=== PATIENT | female | born 1955 | race Caucasian/White ===

== ENCOUNTER → 2016-07-09 10:42 | Outpatient (CLI) | payer MEDICARE, BC ==
[2016-03-09 08:40] VITALS: BMI 39.2
[~2016-07-09 10:42] MED LIST: BETAPACE 120 M120 MG PO; BETAPACE 80 MG80 MG PO; BUMEX 1 MG TAB1 MG PO; BUMEX2 MG PO; BUTRANS1 EAC4 TRANSDERM; DIABETA5 MG PO; DOXYCYCLINE HY100 M2 PO; EFFEXOR XR75 MG PO; GLUCOPHAGE1000 MG PO; GLUCOVANCE 2.5/1 TAB PO; GLUCOVANCE 5/501 TAB PO; IMITREX50 MG PO; KLOR-CON M2020 MEQ PO; LINZESS145 MCG PO; MORPHINE SULFAT15 M4 PO; NEURONTIN 300300 MG PO; PAXIL20 MG PO; PERCOCET 10/3251 TA1 PO; PERCOCET 5-3251 TAB PO; PHENERGAN25 M1 PO; PRAVACHOL20 MG PO; SOMA350 MG PO; TOPIRAGEN50 MG PO; TRULICITY0.75 MG/0. SC; TYLENOL W/CODEI1 TAB PO; VENTOLIN HFA18 GM INH; XANAX0.5 MG
== END | disposition home or self-care (01) ==
LOC: D.MRI 10:42
DX: M25.562 Pain in left knee (principal)

== ENCOUNTER 2016-07-26 19:49 | Observation (INO) | payer MEDICARE, BC ==
[~2016-07-26] VITALS: Ht 170.2 cm; Wt 113.4 kg
--- NOTE | ~2016-07-26 | OP ---
PATIENT NAME: JAMAR VICENTE MEDICAL RECORD: [id number] :55 LOCATION:D.M2 D.2116 ADMISSION DATE:07/26/16 SURGEON: RAMANA ARAUJO MD DATE OF OPERATION: 07/27/2016 PROCEDURES: 1. Left heart catheterization. 2. Selective coronary angiography. 3. Left ventriculogram. INDICATION: Chest pain compatible with angina. PROCEDURE IN DETAIL: After informed consent was obtained and after detailed explanation of risks, benefits as well as alternative therapies, the patient elected to proceed with angiogram and heart catheterization. The right radial area was prepped and draped in normal sterile fashion. The right radial artery was cannulated via modified Seldinger technique with placement of 6-Eritrean sheath. All catheters exchanged through this sheath. FINDINGS: Left ventriculogram was performed in the standard 30-degree SCHNEIDER view reveals good cardiac wall motion throughout all segments. Overall ejection fraction estimated at 60%. SELECTIVE CORONARY ANGIOGRAPHY: Left main, left anterior descending, left circumflex and right coronary artery are all smooth-walled vessels with no angiographic evidence of coronary artery disease. OVERALL IMPRESSION: 1. No angiographic evidence of coronary artery disease. 2. Normal left heart pressures. 3. Normal left ventricular systolic function. 4. Chest pain is noncardiac in etiology. No further cardiac workup needs to be ascertained. TRANSINT:[id number] Voice Confirmation ID: [id number] DOCUMENT ID: [id number] RAMANA ARAUJO MD CC: [id number] DICTATION DATE: 07/27/16 1621 REGIONAL OPERATIONS MANAGER: 07/27/16 2348 DIS IN 07/27/16 [id number] [place] [address]
--- NOTE | ~2016-07-26 | HEMODYNAMI ---
PATIENT:JAMAR VICENTE MEDICAL RECORD: [id number] : 55 LOCATION:[facility]an[facility]12 ADMISSION DATE: 07/26/16 Generatedon:07/27/201616:24 Patient name: JAMAR VICENTE Patient #: [id number] SSN: : 1955 Date of study: 07/27/2016 Page: Of Hemodynamic Procedure Report Patient Data Patient Demographics Procedure consent was obtained First Name: JAMAR Gender: Female Last Name: CINTHIA : 1955 Middle Initial: NINO Age: 61 year(s) Patient #: [id number] Race: Additional ID: [id number] Contact details Address: [address] [place], [place] [email or web address] State: [place] City: [facility] Zip code: [address] Past Medical History Allergies Allergen Reaction Date Comments Reported Penicillins 07/27/2016 Admission Admission Data Admission Date: 07/26/2016 Admission Time: 22:01 Room #: D.2212 Lab Results Lab Result Date: 07/27/2016 Lab Result Time: 0:00 Biochemistry Name Units Result Min Max BUN mg/dl 9 --(*---)-- 7 18 Creatinine mg/dl 0.5 -*(----)-- 0.6 1.3 CBC Name Units Result Min Max Hemoglobin g/dl 12.8 -*(----)-- 13.5 17.5 Procedure Procedure Types Cath Procedure Diagnostic Procedure LHC LHC w/Coronaries Procedure Description Procedure Date Procedure Date: 07/27/2016 Procedure Start Time: 16:09 Procedure End Time: 16:20 Procedure Staff Name Function Felice Malhotra MD Performing Physician Eulalia Echeverria RT Scrub Jessica Benoit RN Nurse Jack Castañeda RT Monitor Procedure Data Cath Procedure Fluoroscopy Diagnostic fluoroscopy Total fluoroscopy Time: 3 time: 3 min min Diagnostic fluoroscopy Total fluoroscopy dose: 582 dose: 582 mGy mGy Contrast Material Contrast Material Type Amount (ml) Isovue 300 57 Entry Location Entry Primary Successful Side Size Upsize Upsize Entry Closure Dixon ccessful Closure Location (Fr) 1 (Fr) 2 (Fr) Remarks Device Remarks Radial Right 6 Fr Mechanical artery Short Compression Diagnostic catheters Device Type Used For End Catheter Placement Terumo 5Fr [place] 110cm LV Angiography catheter Procedure Complications No complications Procedure Medications Medication Administration Route Dosage Oxygen NC 2 l/min Lidocaine 2% added to field 20 Heparin Flush Bag added to field 2 bags (1000units/500ml NS) 0.9% NaCl I.V. 100 ml/hr Versed I.V. 1 mg Fentanyl I.V. 50 mcg Radial Cocktail I.A. 1 syringe (Verapomil 2mg/Nitro 400mcg/Heparin 1500units) Versed I.V. 1 mg Fentanyl I.V. 50 mcg Fentanyl I.V. 50 mcg Hemodynamics Rest HGB: 12.8 (g/dl) Heart Rate: 59 (bpm) Snapshots Pre Cath Intra NCS Post Cath Vital Signs Time Heart Resp SPO2 etCO2 RO5zodj NIBP Rhythm Pain Sedation Rate (ipm) (%) (mmHg) (mmHg) (mmHg) Status Level (bpm) 15:55:57 60 17 99 0 0 117/55(88) NSR 0 (11) 10(A) , No pain 16:00:19 61 21 96 0 0 111/40(65) NSR 0 (11) 10(A) , No pain 16:04:35 61 19 96 0 0 111/31(88) NSR 0 (11) 10(A) , No pain 16:08:49 57 21 96 0 0 111/31(55) NSR 0 (11) 9(A) , No pain 16:13:07 60 17 97 0 0 101/30(53) NSR 0 (11) 9(A) , No pain 16:17:21 59 17 95 0 0 121/46(98) NSR 0 (11) 9(A) , No pain 16:23:09 57 17 95 0 0 121/39(88) NSR 0 (11) 10(A) , No pain Medications Time Medication Route Dose Verified Delivered Reason Notes Effectiveness by by 15:58:42 Oxygen NC 2 l/min Felice Lopez used for Marya Benoit jig boring machine set up operator 15:58:50 Lidocaine 2% added 20ml Felice Viveros for local to vial Marya Malhotra MD anesthetic field 15:59:01 Heparin Flush added 2 bags Felice Viveros used for Bag to Marya Malhotra MD procedure (1000units/500ml field NS) 15:59:10 0.9% NaCl I.V. 100 Felice Lopez Per ml/hr Marya Benoit RN physician 16:06:29 Versed I.V. 1 mg Felice Lopez for sedation Marya Benoit RN 16:06:35 Fentanyl I.V. 50 mcg Felice Lopez for sedation Marya Benoit RN 16:10:48 Radial Cocktail I.A. 1 Felice Viveros for (Verapomil syringe Marya Malhotra MD vasodilation 2mg/Nitro 400mcg/Heparin 1500units) 16:10:52 Versed I.V. 1 mg Felice Lopez for sedation Marya Benoit RN 16:10:56 Fentanyl I.V. 50 mcg Felice Lopez for sedation Marya Benoit RN 16:16:14 Fentanyl I.V. 50 mcg Felice Lopez for sedation Marya Benoit RN Procedure Log Time Note 15:29:43 Jessica Benoit RN sent for patient. Start room use. 15:29:54 ACC Patient presents with Unstable Angina CCS Anginal Class 3--Marked limitation of physical activity, angina occurs with ordinary activity.. 15:29:57 Diagnostic Cath status Urgent 15:30:01 Time tracking: Regular hours 15:30:06 Plan of Care:Hemodynamics will remain stable., Cardiac rhythm will remain stable., Comfort level will be maintained., Respiratory function will remain adequate., Patient/ family verbilizes understanding of procedure., Procedure tolerated without complication., Recovers from procedure without complications.. 15:54:42 Patient received from Med/Surg to CCL 1 Alert and oriented. Tansferred to table in Supine position. 15:54:43 Warm blankets applied, and rufino hugger turned on for patient comfort. 15:54:43 Correct patient and procedure confirmed by team. 15:54:45 Signed procedure consent form obtained from patient. 15:54:46 ECG and BP/O2 sat monitors applied to patient. 15:54:48 Vital chart was started 15:54:49 Full Disclosure recording started 15:58:19 Baseline sample Acquired. 15:58:25 Rhythm: sinus rhythm 15:58:42 Oxygen 2 l/min NC was administered by Jessica Benoit RN; used for procedure; 15:58:50 Lidocaine 2% 20ml vial added to field was administered by Felice Malhotra MD; for local anesthetic; 15:59:01 Heparin Flush Bag (1000units/500ml NS) 2 bags added to field was administered by Felice Malhotra MD; used for procedure; 15:59:10 0.9% NaCl 100 ml/hr I.V. was administered by Jessica Benoit RN; Per physician; 15:59:28 H&P Date Dictated: 07/26/2016 Within 30 days and on chart., ER History on chart.. 16:04:26 Pre-procedure instructions explained to patient. 16:04:27 Pre-op teaching completed and patient verbalized understanding. 16:04:29 Family in patients room. 16:04:31 Patient NPO since Midnight. 16:04:40 Patient allergic to Penicillins 16:04:54 Is the patient allergic to Iodine/contrast media? No. 16:05:04 Is patient on blood thinner?Yes 16:05:07 ACC The patient was administered the following blood thiners within the last 24 hours: ACCPlavix 16:05:12 Patient diabetic? No. 16:05:14 ----Pre-sedation anethsthesia assessment.---- 16:05:17 Previous problem with sedation/anesthesia? No ? 16:05:23 Snore? Yes 16:05:25 Sleep apnea? No 16:05:27 Deviated septum? No 16:05:28 Opens mouth fully? Yes 16:05:32 Sticks out tongue? Yes 16:05:37 Airway obstruction? Yes COPD 16:05:45 Dentures? Yes IN TIGHT 16:05:50 Pre procedure: right dorsailis pedis pulse 1+ Palpable, but thready & weak; easily obliterated 16:05:52 Modified Jagdish's test Ulnar > 7 seconds. 16:05:55 Patient pain scale 0/10 ?. 16:06:01 IV patent on arrival in left hand with 0.9% NaCl at 10ml/hr. 16:06:05 Right Radial & Right Groin area was prepped with chlora-prep and draped in sterile fashion 16:06:06 Alarms reviewed by R. N. 16:06:07 Sharps counted by scrub and verified by R.N. 16:06:09 --------ALL STOP TIME OUT------ 16:06:10 Final Timeout: patient, procedure, and site verified with staff and physician. All members of the team are in agreement. 16:06:12 Right Radial & Right Groin site verified by team. 16:06:15 Physical assessment completed. ASA score P 2 - A patient with mild systemic disease as per Felice Malhotra MD. 16:06:19 Sedation plan: IV Moderate Sedation Versed, Fentanyl 16:06:29 Versed 1 mg I.V. was administered by Jessica Benoit RN; for sedation; 16:06:31 Use device set Radial Dx 16:06:32 Acist Syringe opened to sterile field. 16:06:32 Medline Cath Pack opened to sterile field. 16:06:33 Bag Decanter opened to sterile field. 16:06:33 Terumo 6Fr Slender Glidesheath opened to sterile field. 16:06:33 St Jos[place] 260cm J .035 wire opened to sterile field. 16:06:34 Acist Hand Control opened to sterile field. 16:06:34 Acist Manifold opened to sterile field. 16:06:35 Fentanyl 50 mcg I.V. was administered by Jessica Benoit RN; for sedation; 16:06:35 Tegaderm 4 x 4 opened to sterile field. 16:06:35 MBrace Wrist Support opened to sterile field. 16:07:07 Lab Result : Creatinine 0.5 mg/dl 16:07:07 Lab Result : BUN 9 mg/dl 16:07:07 Lab Result : Hemoglobin 12.8 g/dl 16::43 Lab results completed and on chart. 16:08:43 Zero performed for pressure channel P1 16:09:15 Procedure started. 16:09:43 Local anesthetic to right radial artery with Lidocaine 2% by Felice Malhotra MD.INITIAL ACCESS ONLY 16:10:07 A 6 Fr Short sheath was inserted into the Right Radial artery 16:10:31 A Terumo 5Fr [place] 110cm catheter was advanced over the wire and used for LV Angiography. 16:10:48 Radial Cocktail (Verapomil 2mg/Nitro 400mcg/Heparin 1500units) 1 syringe I.A. was administered by Felice Malhotra MD; for vasodilation; 16:10:52 Versed 1 mg I.V. was administered by Jessica Benoit RN; for sedation; 16:10:56 Fentanyl 50 mcg I.V. was administered by Jessica Benoit RN; for sedation; 16:11:39 LV angiography performed. 16:11:49 LV gram done using SCHNEIDER 16:12:10 EF : 55 % 16:13:07 RCA angiography performed. 16:13:28 Catheter removed. 16:14:04 RipCodetronic Launcher 5Fr EBU 3.5 guide catheter opened to sterile field. 16:14:14 5 Fr EBU 3.5 guide catheter was inserted over the wire 16:16:14 Fentanyl 50 mcg I.V. was administered by Jessica Benoit RN; for sedation; 16:16:42 LCA angiography performed. 16:16:51 Catheter removed. 16:17:09 Contrast amount:Isovue 300 57ml. 16:17:30 Sheath removed intact; hemostasis achieved with Mechanical Compression to the Right Radial artery. 16:17:55 Terumo TR Band Standard opened to sterile field. 16:17:57 Procedure ended.(Physican Out) 16:18:29 Fluoroscopy time 03.00 minutes. 16:18:34 Fluoroscopy dose: 582 mGy 16:18:34 Flurop Dose total: 582 16:18:36 Sharps counted by scrub and verified by R.N. 16:18:42 TR band inflated with 10cc of air. 16:19:25 Insertion/operative site no bleeding no hematoma. 16:19:30 Post right radial artery:stable 16:19:32 Post Procedure Pulses reassessed and unchanged 16:19:35 Post procedure rhythm: sinus rhythm 16:19:37 Post procedure instruction explained to patient.Patient verbalizes understanding. 16:19:53 Procedure and supply charges have been captured, reviewed, submitted and are correct. 16:19:57 Procedure Complication : No complications 16:19:59 Vital chart was stopped 16:20:00 See physician's report for complete and final results. 16:20:03 Report given to PCU. 16:20:06 Patient transfered to PCU with Bed. 16:20:09 Procedure ended. 16:20:09 Full Disclosure recording stopped 16:20:11 End room use (Document Last) Device Usage Item Name Manufacture Quantity Catalog Hospital Part Current Minimal Lot# / Number Charge Number Stock Stock Serial# Code Acist Acist 1 12058 167547 582965 123962 20 Syringe Medical Systems Inc Medline Cardinal 1 [id number] 680783 75035 972109 5 Cath Pack Health Bag Microtek 1 2002S 1968924 93124 620167 5 Decanter Medical Inc. Terumo 6Fr Terumo 1 [id number] 786805 153923 234314 [address] St Josue 1 814953 412091 869925 008763 30 260cm J .035 wire Acist Hand Acist 1 03218 898559 047944 557871 5 Control Medical Systems Inc Acist Acist 1 85222 386956 878037 356227 5 Manifold Medical Systems Inc Tegaderm 4 3M 1 1626W 279710 659774 802407 5 x 4 MBrace Advanced 1 140-0250-00 962019 28213 374021 5 Wrist Vascular Support Dynamics Terumo 5Fr Terumo 1 67-2821 083212 306841 832445 5 [place] 110cm catheter Medtronic Medtronic 1 [id number] 258981 943931 380975 1 Launcher 5Fr EBU 3.5 guide catheter Terumo TR Terumo 1 [id number] 502464 227407 491386 40 Band Standard Signature Audit [place] Stage Time Signature Unsigned Intra-Procedure 07/27/2016 Jack Castañeda 4:24:07 PM RT(R) Signatures Monitor : Jack Castañeda RT Signature : Date : Time : [facility] [address] [place] [address]
[~2016-07-26 19:49] MED LIST changes: -MORPHINE SULFAT15 M4 PO
[2016-07-26 20:37] LABS: BASOPHILS 0.5 % (0.0-2.0); EOSINOPHILS 4.4 % (0-7); HEMATOCRIT 39.9 % (36.0-48.0); IMMATURE GRANULOCYTES 0.3 % (0-5); LYMPHOCYTES 25.9 % (15-50); MCH 31.3 pg (26.0-34.0); MCHC 32.6 g/dL (31.0-37.0); MCV 95.9 fL (80.0-100.0); MEAN PLATELET VOLUME 12.7 fL (7.4-10.4); MONOCYTES 6.8 % (2-11); NEUTROPHILS 62.1 % (40-80); PLATELET COUNT 184 10x3/uL (130-400); RBC 4.16 10x6/uL (4.00-5.40); RDW 14.2 % (11.5-14.5); WBC 10.7 10x3/uL (4.8-10.8)
[2016-07-26 21:02] LABS: ALBUMIN 3.4 g/dL (3.4-5.0); ALKALINE PHOSPHATASE 101 U/L (46-116); ALT (SGPT) 30 U/L (10-68); CALC OSMOLALITY 281 mosm/kg (275-300); CALCIUM 9.1 mg/dL (8.5-10.1); CARBON DIOXIDE 28.9 mmol/L (21.0-32.0); CHLORIDE - SERUM 101 mmol/L (98-107); CREATININE - SERUM 0.6 mg/dL (0.6-1.3); GLUCOSE 219 mg/dL (74-106); POTASSIUM - SERUM 3.8 mmol/L (3.5-5.1); PROTEIN - SERUM 6.2 g/dL (6.4-8.2); SODIUM 138 mmol/L (136-145); UREA NITROGEN 11 mg/dL (7-18); eGFR NON AFRICAN AMERICAN > 90 mL/min (90-120)
[2016-07-26 21:14] LABS: CKMB 2.1 U/L (0.0-3.6); CREATINE KINASE 67 UL (21-215); TROPONIN-I < 0.017 ng/mL (0.000-0.060)
[2016-07-27 00:31] VITALS: BP 99/60; BMI 39.2
--- NOTE | 2016-07-27 00:48 | NUR ---
REC'D TO ROOM 2212 A 61 Y/O W/FE PER SERVICES DR. ARAUJO WITH DX UNSTABLE ANGINA. ASSESSMENT PER ADMIT PACKET. RATES PAIN LEVEL #2. PLACED ON TELEM. SHOWING SR WITH HR 86.SALIONE LOCK PATENT TO LEFT ARM SITE CLEAR.
[2016-07-27 01:15] LABS: CKMB 1.8 U/L (0.0-3.6); CREATINE KINASE 61 UL (21-215)
[2016-07-27 01:16] LABS: TROPONIN-I < 0.017 ng/mL (0.000-0.060)
--- NOTE | 2016-07-27 02:47 | NUR ---
REC'D PATIENT FROM THE ER. 61 YR OLD RAFYAUSION FEMALE. ALERT AND ORIENTED X4. SPEECH CLEAR AND APPROPRIATE. DENIES PAIN AT THIS TIME. DENIES HEARING AND VISION PROBLEMS. WEARS READING GLASSES. PERRLA 4MM. NO JVD, HR 66, RESPIRATIONS EVEN AND UNLABORED. ABD NON DISTENDED, SOFT, NOT TENDER TO TOUCH. REPORTED LAST BM 07/25/16. BLADDER NOT PALPABLE, URINE, STRAW COLORED, CLEAR. DENIES PAIN ON URINATION. FULL ROM IN UPPER AND LOWER EXTREMITIES. UP ADLIB. MUSCLE STRENTH 5/5 IN UPPER AND LOWER EXTREMITIES. CAP REFILL <3 SECS UPPER AND LOWER EXTREMITES. PERIPHERAL PULSES +2. SKIN WARM, DRY, INTACT. HAS A LEFT FA 22G THAT IS SALINE LOCKED, PATENT AND DRESSING IS INTACT. PATIENT IS NOW LAYING IN BED. IS NPO UNTIL FURTHER NOTICE. INTRUCTED TO CALL IF NEEDED ANYTHING. VERBALIZED UNDERSTANDING. ALLERGIES INCLUDE PENICILLINS, PROTONIX, AND HYDROCODONE. PERSONAL BELONGINGS ARE IN THE CLOSET. DENIED WANTING TO USE THE SAFE. BED LOW, LOCKED, CALL LIGHT IN REACH.
--- NOTE | 2016-07-27 05:49 | NUR ---
PATIENT IS RESTING IN BED. NO DISTRESS NOTED. DENIED PAIN AT THIS TIME. DENIES FURTHER NEEDS AT THIS TIME. INSTRUCTED TO CALL IF NEEDS ANYTHING. VERBALIZED UNDERSTANDING. BED LOW, LOCKED, CALL LIGHT IN REACH.
--- NOTE | 2016-07-27 07:00 | NUR ---
REPORT RECIEVED ASSUMED CARE. PATIENT IN BED WITH IV INTACT. NO COMPLAINTS AT THIS TIME. FAMILY AT BEDSIDE. CALL LIGHT WITHIN REACH.
[2016-07-27] MEDS ORDERED: MORPHINE SULFAT15 M4 PO (08:04)
[2016-07-27 08:16] LABS: CKMB 1.4 U/L (0.0-3.6); CREATINE KINASE 46 UL (21-215)
[2016-07-27 08:19] VITALS: BP 117/55
[2016-07-27 08:19] LABS: TROPONIN-I < 0.017 ng/mL (0.000-0.060)
--- NOTE | 2016-07-27 08:40 | NUR ---
PATIENT RECIEVED MS CONTIN FOR BACK PAIN AT THIS TIME. IV INTACT. NO OTHER COMPLAINTS. FAMILY AT BEDSIDE. CALL LIGHT WITHIN REACH.
[2016-07-27 09:11] LABS: HEMATOCRIT 39.1 % (36.0-48.0); HEMOGLOBIN 12.8 g/dL (12-16); LYMPHOCYTES 25.9 % (15-50); MCH 30.8 pg (26.0-34.0); MCHC 32.7 g/dL (31.0-37.0); MCV 94.2 fL (80.0-100.0); MEAN PLATELET VOLUME 13.2 fL (7.4-10.4); NEUTROPHILS 65.3 % (40-80); PLATELET COUNT 168 10x3/uL (130-400); RBC 4.15 10x6/uL (4.00-5.40); RDW 13.9 % (11.5-14.5)
[2016-07-27 09:12] LABS: CALC OSMOLALITY 280 mosm/kg (275-300); CALCIUM 8.9 mg/dL (8.5-10.1); CARBON DIOXIDE 29.9 mmol/L (21.0-32.0); CHLORIDE - SERUM 106 mmol/L (98-107); CREATININE - SERUM 0.5 mg/dL (0.6-1.3); GLUCOSE 156 mg/dL (74-106); POTASSIUM - SERUM 4.2 mmol/L (3.5-5.1); SODIUM 140 mmol/L (136-145); UREA NITROGEN 9 mg/dL (7-18); eGFR NON AFRICAN AMERICAN > 90 mL/min (90-120)
--- NOTE | 2016-07-27 10:50 | NUR ---
PATIENT SITTING UP IN CHAIR WITH NO COMPLAINTS. CALL LIGHT WITHIN REACH.
[2016-07-27 12:16] VITALS: BP 121/48
--- NOTE | 2016-07-27 12:30 | NUR ---
PATIENT EATING LUNCH AT THIS TIME PER ORDERS OF DR. ARAUJO. STATED HE WOULD DO CATH LATER AFTERNOON. PATIENT HAS NO COMPLAINTS AT THIS TIME. CALL LIGHT WITHIN REACH.
[2016-07-27 13:09] VITALS: Ht 170.2 cm; Wt 113.4 kg
--- NOTE | 2016-07-27 15:44 | NUR ---
PATIENT TO VALVE INSERTER
--- NOTE | 2016-07-27 16:48 | NUR ---
RECEIVED PT FROM FINANCIAL SERVICES ASSISTANT VIA BED IN STABLE CONDITION WITH TR BAND INTACT TO RT WRIST RESP UNLABORED NAD NOTED
--- NOTE | 2016-07-27 20:57 | NUR ---
RIGHT WRIST STABLE. VSS. DC ORDERS RECEIVED. DC INSTRUCTIONS GIVEN. PT VERBALIZES UNDERSTANDING. TAKEN DOWNSTAIRS VIA WC.
== END 2016-07-27 21:05 | disposition home or self-care (01) ==
LOC: D.ER 19:49 → D.MS 22:01 → OBSVTIME 22:01 → D.M2 07-27 16:40
PROVIDERS: Emergency Medicine; ADMIT Internal Medicine Interventional Cardiology
DX: R07.89 Other chest pain (principal); I10 Essential (primary) hypertension; E11.40 Type 2 diabetes mellitus with diabetic neuropathy, unspecified; E78.5 Hyperlipidemia, unspecified; I49.1 Atrial premature depolarization; Z72.0 Tobacco use

== ENCOUNTER → 2016-11-02 16:58 | Outpatient (CLI) | payer MEDICARE, BC ==
[2016-07-27 13:09] VITALS: BMI 39.1
[~2016-11-02 16:58] MED LIST changes: +MORPHINE SULFAT15 M4 PO
== END | disposition home or self-care (01) ==
LOC: D.MAMMO 13:30
DX: Z00.00 Encounter for general adult medical examination without abnormal findings (principal)

== ENCOUNTER → 2016-11-09 13:25 | Outpatient (CLI) | payer MEDICARE, BC ==
[2016-07-27 13:09] VITALS: BMI 39.1
== END | disposition home or self-care (01) ==
LOC: D.CT 13:25
DX: E11.9 Type 2 diabetes mellitus without complications (principal); G43.909 Migraine, unspecified, not intractable, without status migrainosus; M79.7 Fibromyalgia; G50.1 Atypical facial pain

== ENCOUNTER 2017-01-25 05:48 | Day surgery (SDC) | payer MEDICARE, BC ==
[2017-01-25 07:18] LABS: HEMATOCRIT 44.9 % (36.0-48.0); HEMOGLOBIN 14.7 g/dL (12-16); MCH 31.9 pg (26.0-34.0); MCHC 32.7 g/dL (31.0-37.0); MCV 97.4 fL (80.0-100.0); MEAN PLATELET VOLUME 13.3 fL (7.4-10.4); RBC 4.61 10x6/uL (4.00-5.40); RDW 14.2 % (11.5-14.5); WBC 10.2 10x3/uL (4.8-10.8)
[2017-01-25 07:23] LABS: CALC OSMOLALITY 282 mosm/kg (275-300); CALCIUM 9.2 mg/dL (8.5-10.1); CARBON DIOXIDE 23.7 mmol/L (21.0-32.0); CHLORIDE - SERUM 104 mmol/L (98-107); CREATININE - SERUM 0.6 mg/dL (0.6-1.3); POTASSIUM - SERUM 3.6 mmol/L (3.5-5.1); SODIUM 139 mmol/L (136-145); UREA NITROGEN 10 mg/dL (7-18); eGFR NON AFRICAN AMERICAN > 90 mL/min (90-120)
[2017-01-25 07:27] LABS: GLUCOSE 215 mg/dL (74-106)
[2017-01-25] MEDS ORDERED: ZOFRAN4 MG PO (09:44)
[2017-01-25] MEDS ORDERED: BUSPAR10 MG PO (09:45)
[2017-01-25] MEDS ORDERED: REGLAN10 MG PO (09:46)
[2017-01-25] MEDS ORDERED: OXYBUTYNIN CHLOR5 MG PO (09:46)
[2017-01-25 09:49] VITALS: BP 138/62; BMI 40.5
--- NOTE | 2017-01-25 13:44 | NUR ---
1344-INFLATE 18-20 BALLOON TO 50.
--- NOTE | 2017-01-25 18:41 | NUR ---
1530 IV DC WITH CATHER TIP INTACT
--- NOTE | 2017-01-26 10:17 | HP ---
PATIENT: JAMAR VICENTE MEDICAL RECORD: [id number] ACCOUNT: [id number] LOCATION:DCR : 55 ADMISSION DATE: 01/25/17 HISTORY AND PHYSICAL EXAMINATION ADDENDUM There is a history and physical on the chart from September. There has been no change in her history or physical examination since then. She is still having dysphagia. She now states that the dysphagia is at the level of the cricopharyngeus rather than at the level of the lower esophageal sphincter. I am going to plan for EGD with esophageal dilation as well as colonoscopy. TRANSINT:[id number] Voice Confirmation ID: [id number] DOCUMENT ID: [id number] ERIKA MADRID MD at 1017 CC: [id number] DICTATION DATE: 01/25/17 1332 EMPLOYMENT CONSULTANT: 01/25/17 1349 [facility] 01/25/17 [id number] [place] [address]
--- NOTE | 2017-01-26 10:17 | OP ---
PATIENT NAME: JAMAR VICENTE MEDICAL RECORD: [id number] :55 LOCATION:D.OPS ADMISSION DATE: SURGEON: SAGAR MADRID MD DATE OF OPERATION: 01/25/2017 PREOPERATIVE DIAGNOSES: 1. History of Khan esophagus. 2. 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 3. History of colon polyps. POSTOPERATIVE DIAGNOSES: 1. History of Khan esophagus. 2. 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 3. History of colon polyps. 4. Inadequate colonic prep. 5. Seven colorectal polyps with significant regrowth of a polyp across from the ileocecal valve that is best seen with narrow band imaging. PROCEDURES: 1. Esophagogastroduodenoscopy with antral and distal esophageal biopsies. 2. Esophageal dilation through the catheter balloon to 60 Sammarinese. 3. Total colonoscopy to cecum. 4. Hot biopsy forceps polypectomies times 7. SURGEON: Sagar Madrid MD. FLOUR MIXER: None. BLOOD LOSS: Minimal. ANESTHESIA: Intravenous sedation. COMPLICATIONS: None. The risks, possible complications and alternatives to the procedure were explained to the patient. She elects to proceed. Discussion specifically included, but was not limited to, bleeding requiring an emergency reoperation, infection, as well as endoscopic perforation. OPERATIVE COURSE: The patient was conveyed to the gastroenterology laboratory on 01/25/2017. Intravenous sedation was induced by anesthesia staff. A bite block was inserted. A gastroscope was inserted into the mouth. It was advanced easily into the hypopharynx. The esophagus was easily intubated as were the stomach and duodenum. Upon withdrawal, retroflexed and angulus views were obtained. Antral biopsies were obtained. I advanced it through the catheter balloon. I then sequentially dilated the entire length of the esophagus to 60 Sammarinese. The balloon dilator was removed. I then re-endoscoped the patient's esophagus and stomach. There had been no false passage or perforation. Biopsies of the distal esophagus were obtained and an area that appeared to contain Khan esophagus. The endoscope was then withdrawn under direct vision. The patient was turned 180 degrees and placed in the Byrd position. A digital rectal examination was performed. A colonoscope was inserted through the anus. It was easily passed to the cecum. Upon withdrawal, I irrigated and aspirated OPERATIVE REPORT [id number] JAMAR VICENTE extensively. The pullback was greater than 22-minute pullback. There have been significant regrowth of a polyp across from the ileocecal valve that was best seen with narrow band imaging. Seven hot biopsy forcep polypectomies were performed. The polyps ranged in size from 8 mm-2.5 cm. The polyps were removed in their entireties. A retroflexed view was obtained in the rectum. I then unretroflexed the scope and removed it under direct vision. Due to the adequate prep, I am going to bring the patient back in a year and I think she needs to have a 2-day prep at that time. TRANSINT:[id number] Voice Confirmation ID: [id number] DOCUMENT ID: [id number] SAGAR MADRID MD at 1017 CC: LILI ALMENDAREZ MD [id number] DICTATION DATE: 01/25/17 1454 CYBER INCIDENT ANALYST: 01/25/17 1608 [facility] 01/25/17 [address] [place] [address]
== END 2017-01-25 15:45 | disposition home or self-care (01) ==
LOC: D.OPS 05:48
PROVIDERS: Anesthesiology
DX: R13.10 Dysphagia, unspecified (principal); K63.5 Polyp of colon; F17.200 Nicotine dependence, unspecified, uncomplicated; I10 Essential (primary) hypertension; E11.9 Type 2 diabetes mellitus without complications; G47.30 Sleep apnea, unspecified; E66.01 Morbid (severe) obesity due to excess calories; Z68.41 Body mass index [BMI] 40.0-44.9, adult; M19.90 Unspecified osteoarthritis, unspecified site; Z01.812 Encounter for preprocedural laboratory examination

== ENCOUNTER 2017-06-01 05:17 | Day surgery (SDC) | payer MEDICARE, BC ==
[2017-05-30 10:39] LABS: HEMATOCRIT 42.8 % (36.0-48.0); HEMOGLOBIN 14.2 g/dL (12-16); MCH 31.7 pg (26.0-34.0); MCHC 33.2 g/dL (31.0-37.0); MCV 95.5 fL (80.0-100.0); MEAN PLATELET VOLUME 12.5 fL (7.4-10.4); RBC 4.48 10x6/uL (4.00-5.40); RDW 13.5 % (11.5-14.5); WBC 10.3 10x3/uL (4.8-10.8)
[2017-05-30 10:55] LABS: ANION GAP 12.8 mmol/L (8-16); CALCIUM 8.8 mg/dL (8.5-10.1); CARBON DIOXIDE 25.4 mmol/L (21.0-32.0); POTASSIUM - SERUM 4.2 mmol/L (3.5-5.1)
[~2017-06-01] VITALS: Ht 170.2 cm; Wt 113.4 kg
--- NOTE | ~2017-06-01 | OP ---
PATIENT NAME: JAMAR VICENTE MEDICAL RECORD: [id number] :55 LOCATION:[facility] ADMISSION DATE: SURGEON: ERIKA WEISS MD DATE OF OPERATION: 06/01/2017 SURGEON: Erika Weiss MD ANESTHESIA: Local plus MAC by Romeo Toth CRNA. PREOPERATIVE DIAGNOSES: Urge urinary incontinence, chronic constipation. PROCEDURE: InterStim stage I left S3. FINDINGS: Excellent reflex responses on the left S3 nerve root. SPECIMENS: None. BLOOD LOSS: None. CLINICAL HISTORY: This is a 62-year-old female with a history of urge incontinence over the past 6 years. She has tried numerous different medications including Detrol, oxybutynin, Myrbetriq without success. She also has a problem with chronic constipation. She wishes to have a trial of InterStim, which is the bladder pacemaker. The nerve to the rectum is the same as to the bladder and therefore, we hope that we can also regulate her bowel function at the same time with this modality. Stage I is to put a temporary lead in with an external pacemaker in order to test to see if there is any efficacy. Stage II is to put the permanent pacemaker in if the treatment is successful. If the treatment is not successful, she will come next week to have the leads removed. SHE IS ALLERGIC TO MULTIPLE DRUGS INCLUDING HYDROCODONE, NEOSPORIN, PENICILLIN, PROTONIX, WASP VENOM, BUPROPION. She was given Levaquin IV soil conservation technician to the OR. DESCRIPTION OF PROCEDURE: The patient was placed in prone position and given IV sedation. She was prepped and draped. Using fluoroscopy, we identified and marked out on the skin using a marking pen, the S3 foramen on each side. The level of sacral foramina was also marked out bilaterally. The skin overlying the S2 foramen was infiltrated with 1% lidocaine without epinephrine. The spinal needles were then placed at the level of the S2 foramen, but angling into the S3 foramen. The position of the needles was verified by fluoroscopy in the AP and lateral views. Once we were in the S3 foramen bilaterally, we tested with the electrical lead to see which side had the greater response. The left S3 nerve root gave significantly stronger reflex responses than the right side. The reflexes that we look at include pelvic floor contractures, which we call the alisa reflex and curling of the toes, especially the big toe. She had an excellent response at very low voltages on the left side. We therefore proceeded using the left side. The needle on the right side was entirely removed. The stylet of the needle was removed and an extra long stylet was placed through the needle foramen. The spinal needle was then removed, leaving the extra long stylet in place. A small incision was made using a #15 blade on either side of the extra long stylet. Over the extra long stylet, we placed the trocar and sheath. There was a radiopaque marker on the distal end of the trocar. This was placed about fdc through the depth of the sacral bone. At this point, the extra long stylet and the trocar were removed, leaving the sheath in place. The 4-channel permanent electrode was then placed. We tested OPERATIVE REPORT [id number] JAMAR VICENTE each of the channels in turn and we had excellent response from all 4 channels. A transverse incision about 2 cm long was made in the right iliac crest region. A tunneling device was used to bring the permanent electrode over to this new incision in the right iliac crest. Here the permanent electrode was connected to the temporary test electrode. A silicone sheath was placed around the connection and the connection was tied down at each end with 2-0 Prolene sutures to render the connection watertight. The tunneling device was again used to bring the temporary triple valve tester to exit at a point near the left iliac crest. At this point, the wound was irrigated out with saline. We put mir to close the incisions. Dressings were applied. The temporary lead will be hooked up to the temporary pacemaker. The [employer] chain sales representative was present and he will put in starting points for the pacemaker. I will see the patient back early next week in order to determine if the test was successful or if it is not successful to remove all the implanted hardware. TRANSINT:[id number] Voice Confirmation ID: [id number] DOCUMENT ID: [id number] ERIKA WEISS MD at 1353 CC: [id number] DICTATION DATE: 06/01/17909 REGULAR SENIOR CARE PROVIDER: 06/01/17 1113 [facility] [address] [place] [address]
[~2017-06-01 05:17] MED LIST changes: +BUSPAR10 MG PO; +GLYBURIDE5 M1 PO; +OXYBUTYNIN CHLOR5 MG PO; +OXYCODONE HCL10 MG PO; +REGLAN10 MG PO; +TOPAMAX50 MG PO; +ZOFRAN4 MG PO
[2017-06-01 06:36] VITALS: BP 140/62; Ht 170.2 cm; Wt 113.4 kg
== END 2017-06-01 10:45 | disposition home or self-care (01) ==
LOC: D.OPS 05:17 → D.PAN 07:30 → D.OPS 10:45
PROVIDERS: Anesthesiology
DX: N39.41 Urge incontinence (principal); K59.09 Other constipation; Z01.812 Encounter for preprocedural laboratory examination; Z88.5 Allergy status to narcotic agent; Z88.0 Allergy status to penicillin; Z88.8 Allergy status to other drugs, medicaments and biological substances; Z88.3 Allergy status to other anti-infective agents; Z91.038 Other insect allergy status

== ENCOUNTER 2017-06-08 06:01 | Day surgery (SDC) | payer MEDICARE, BC ==
--- NOTE | ~2017-06-08 | OP ---
PATIENT NAME: JAMAR VICENTE MEDICAL RECORD: [id number] :55 LOCATION:D.OPS ADMISSION DATE: SURGEON: ERIKA WEISS MD DATE OF OPERATION: 06/08/2017 SURGEON: Erika Weiss MD ANESTHESIA: TIVA by Romeo Toth CRNA. PREOPERATIVE DIAGNOSIS: Urge urinary incontinence. PROCEDURES: 1. Removal of InterStim pacemaker lead. 2. Cystoscopy and intravesical Botox injection 100 units. Store Shopper is [employer]er[employer], lot #[id number], expires December 2019. BLOOD LOSS: None. FINDINGS: On cystoscopy single ureteral orifices bilaterally. No bladder tumors. InterStim lead site is clean and uninfected. CLINICAL HISTORY: This is a 62-year-old female, who has problems with severe urge urinary incontinence. It has not responded to medication. Last week, we placed an InterStim lead for a stage I trial. She had an excellent response in terms of her reflexes, so that we were definitely in the S3 nerve root. The InterStim device did not work for her. She comes now to have the InterStim lead removed and also intravesical Botox injected. She is allergic to multiple different items including PENICILLIN and NEOPRENE. She was given Levaquin IV applications engineering manager to the OR. DESCRIPTION OF PROCEDURE: The patient was placed into the decubitus position. Her back and sacral area where we had performed the InterStim lead placement was prepped and draped. The skin was infiltrated with 1% lidocaine with epinephrine. The mir were removed. The wound was reopened. The lead was found. A hemostat was used to completely remove the tined lead from its insertion site into the S3 sacral foramen. Because the tines prevent backward migration of the lead, this portion was cut off and sent to pathology separately. The rest of the lead was entirely removed. This entire lead was sent to pathology. The incisions were then reclosed used new mir. Dressings were applied on this. The patient was then transferred to the OR table and placed into dorsal lithotomy position. Cystoscopy was performed. The Botox was diluted with preservative-free normal saline, so that each mL of solution had 5 units of Botox. In 20 different sites, sparing the ureteral orifices and trigone, we injected the Botox. She had good a response and that there was no significant bleeding. The bladder was then emptied through the cystoscope and then the patient was brought to the recovery room. I will see her next week in the office to remove the mir from her sacral area. TRANSINT:[id number] Voice Confirmation ID: [id number] DOCUMENT ID: [id number] OPERATIVE REPORT [id number] JAMAR VICENTE ROBERT S MD at 0926 CC: [id number] DICTATION DATE: 06/08/17 1034 BATTERY TESTER FIELD: 06/08/17 1214 [facility] 06/08/17 [facility] [address] [place] [address]
[2017-06-08 07:11] VITALS: BP 130/57; BMI 39.2
[2017-06-08 08:02] LABS: HEMATOCRIT 43.7 % (36.0-48.0); HEMOGLOBIN 14.3 g/dL (12-16); MCH 31.6 pg (26.0-34.0); MCHC 32.7 g/dL (31.0-37.0); MCV 96.7 fL (80.0-100.0); MEAN PLATELET VOLUME 12.9 fL (7.4-10.4); RBC 4.52 10x6/uL (4.00-5.40); RDW 13.4 % (11.5-14.5); WBC 10.2 10x3/uL (4.8-10.8)
[2017-06-08 08:09] LABS: CALC OSMOLALITY 281 mosm/kg (275-300); CALCIUM 8.9 mg/dL (8.5-10.1); CHLORIDE - SERUM 103 mmol/L (98-107); CREATININE - SERUM 0.7 mg/dL (0.6-1.3); GLUCOSE 221 mg/dL (74-106); SODIUM 138 mmol/L (136-145); UREA NITROGEN 11 mg/dL (7-18); eGFR NON AFRICAN AMERICAN 90 mL/min (90-120)
== END 2017-06-08 12:15 | disposition home or self-care (01) ==
LOC: D.OPS 06:01
PROVIDERS: Urology
DX: N39.41 Urge incontinence (principal); F17.200 Nicotine dependence, unspecified, uncomplicated; I10 Essential (primary) hypertension; I48.91 Unspecified atrial fibrillation; E11.9 Type 2 diabetes mellitus without complications; J44.9 Chronic obstructive pulmonary disease, unspecified; K21.9 Gastro-esophageal reflux disease without esophagitis; E66.01 Morbid (severe) obesity due to excess calories; Z68.39 Body mass index [BMI] 39.0-39.9, adult; Z01.812 Encounter for preprocedural laboratory examination

== ENCOUNTER → 2017-09-20 14:23 | Outpatient (CLI) | payer MEDICARE, BC | END | disposition home or self-care (01) | LOC: D.MRI 14:23 | DX: S83.232A Complex tear of medial meniscus, current injury, left knee, initial encounter (principal); X58.XXXA Exposure to other specified factors, initial encounter ==

== ENCOUNTER 2017-12-13 21:00 | Outpatient (CLI) | payer MEDICARE, BC ==
[2017-12-19] MEDS ORDERED: OXYBUTYNIN CHLOR5 MG PO (09:30)
== END 2017-12-13 23:59 | disposition home or self-care (01) ==
LOC: D.MAMMO 21:00
DX: Z12.31 Encounter for screening mammogram for malignant neoplasm of breast (principal)

== ENCOUNTER 2017-12-20 05:35 | Day surgery (SDC) | payer MEDICARE, BC ==
[2017-12-19 10:21] LABS: HEMATOCRIT 44.4 % (36.0-48.0); HEMOGLOBIN 14.8 g/dL (12-16); MCH 32.2 pg (26.0-34.0); MCHC 33.3 g/dL (31.0-37.0); MCV 96.5 fL (80.0-100.0); MEAN PLATELET VOLUME 12.7 fL (7.4-10.4); RBC 4.6 10x6/uL (4.00-5.40); RDW 14.1 % (11.5-14.5); WBC 10.9 10x3/uL (4.8-10.8)
[2017-12-19 10:47] LABS: CALC OSMOLALITY 285 mosm/kg (275-300); CALCIUM 8.7 mg/dL (8.5-10.1); CARBON DIOXIDE 23.3 mmol/L (21.0-32.0); CHLORIDE - SERUM 104 mmol/L (98-107); CREATININE - SERUM 0.6 mg/dL (0.6-1.3); GLUCOSE 236 mg/dL (74-106); SODIUM 140 mmol/L (136-145); UREA NITROGEN 11 mg/dL (7-18); eGFR NON AFRICAN AMERICAN > 90 mL/min (90-120)
[~2017-12-20] VITALS: Ht 170.2 cm; Wt 105.7 kg
--- NOTE | ~2017-12-20 | OP ---
PATIENT NAME: JAMAR VICENTE MEDICAL RECORD: [id number] :55 LOCATION:D.OPS ADMISSION DATE: SURGEON: SAGAR WEISS MD DATE OF OPERATION: 12/20/2017 SURGEON: Sagar Weiss MD ANESTHESIA: MAC by Thaddeus Toth CRNA DIAGNOSIS: Urge urinary incontinence. PROCEDURES: Cystoscopy, intravesical Botox injection 100 units. FINDINGS: Urethral stricture, which was dilated. No bladder tumors. Some inflammation of the bladder. Cystocele grade II. BLOOD LOSS: None. CLINICAL HISTORY: This is a 62-year-old female with urge urinary incontinence. Oral medications did not work to control her symptoms. She then had a trial of InterStim, which did not work. The radiator core tester was removed. In May of 2017, she had intravesical Botox injection. This worked very well, but it only lasted 3 months for her. She comes now to have a repeat injection. SHE IS ALLERGIC TO NEOPRENE, PENICILLIN, PROTONIX, AND WASP VENOM WELL WELLBUTRIN. She can tolerate Ancef, and she was given Ancef IV lithopone mill worker to the OR. DESCRIPTION OF PROCEDURE: The patient was given IV sedation. She was placed in the dorsal lithotomy position and prepped and draped. A 21-Guatemalan cystoscope was introduced with some difficulty due to her urethral stricture. Once we were in the bladder, single ureteral orifices were seen. No bladder tumors were found. She does have a prominent cystocele. At 10 different locations, we injected the bladder mucosa with 1 cc of Botox solution. Each milliliter of Botox solution held 10 units of Botox. Once the injections were completed, the bladder was emptied through the scope sheath and the scope was removed. We avoided injecting the ureteral orifices or the trigone during the injections. TRANSINT:[id number] Voice Confirmation ID: [id number] DOCUMENT ID: [id number] SAGAR WEISS MD at 0910 CC: [id number] DICTATION DATE: 12/20/17817 HOTEL NIGHT AUDITOR: 12/20/17830 [facility] [address] [place] [address]
[2017-12-20 06:09] VITALS: BP 147/83; Ht 170.2 cm; Wt 105.7 kg
== END 2017-12-20 10:07 | disposition home or self-care (01) ==
LOC: D.OPS 05:35 → D.PAN 07:30 → D.OPS 10:07
PROVIDERS: Anesthesiology
DX: N39.41 Urge incontinence (principal); N35.9 Urethral stricture, unspecified; N81.10 Cystocele, unspecified; Z88.0 Allergy status to penicillin; Z88.8 Allergy status to other drugs, medicaments and biological substances; Z91.038 Other insect allergy status; Z01.812 Encounter for preprocedural laboratory examination

== ENCOUNTER → 2018-04-07 08:43 | Outpatient (CLI) | payer MEDICARE, BC ==
[2017-12-20 06:09] VITALS: BMI 36.6
== END | disposition home or self-care (01) ==
LOC: D.US 08:43
DX: M79.661 Pain in right lower leg (principal)

== ENCOUNTER 2019-01-04 21:02 | Inpatient (IN) | payer MEDICARE, BC ==
[~2019-01-04] VITALS: Ht 170.2 cm; Wt 100.0 kg
[~2019-01-04 21:02] MED LIST changes: +BUMETANIDE0.5 MG PO
[2019-01-04] MEDS ORDERED: COUMADIN5 MG PO (21:19)
[2019-01-04] MEDS ORDERED: BUMEX2 MG PO (21:19)
[2019-01-04] MEDS ORDERED: EFFEXOR75 MG PO (21:19)
[2019-01-04] MEDS ORDERED: BETAPACE 120 M120 MG PO (21:20)
[2019-01-04 21:51] LABS: BASOPHILS 0.2 % (0-2); EOSINOPHILS 0.3 % (0-7); HEMATOCRIT 42.7 % (36.0-48.0); HEMOGLOBIN 13.8 g/dL (12-16); IMMATURE GRANULOCYTES 0.5 % (0-5); LYMPHOCYTES 8.3 % (15-50); MCH 31.4 pg (26.0-34.0); MCHC 32.3 g/dL (31.0-37.0); MCV 97.3 fL (80.0-100.0); MEAN PLATELET VOLUME 12.4 fL (7.4-10.4); MONOCYTES 0.8 % (2-11); NEUTROPHILS 89.9 % (40-80); PLATELET COUNT 278 10x3/uL (130-400); RBC 4.39 10x6/uL (4.00-5.40); RDW 14.5 % (11.5-14.5); WBC 10.3 10x3/uL (4.8-10.8)
[2019-01-04 21:57] LABS: KETONE - SERUM NEGATIVE (NEGATIVE)
[2019-01-04 22:02] LABS: ALBUMIN 3.4 g/dL (3.4-5.0); ALKALINE PHOSPHATASE 106 U/L (46-116); ALT (SGPT) 20 U/L (10-68); BILIRUBIN - TOTAL 0.17 mg/dL (0.2-1.3); CALC OSMOLALITY 288 mosm/kg (275-300); CALCIUM 8.6 mg/dL (8.5-10.1); CARBON DIOXIDE 25.7 mmol/L (21.0-32.0); CHLORIDE - SERUM 102 mmol/L (98-107); CREATININE - SERUM 0.9 mg/dL (0.6-1.3); POTASSIUM - SERUM 3.9 mmol/L (3.5-5.1); PROTEIN - SERUM 7.3 g/dL (6.4-8.2); SODIUM 138 mmol/L (136-145); UREA NITROGEN 15 mg/dL (7-18); eGFR NON AFRICAN AMERICAN 67 mL/min (90-120)
[2019-01-04 22:03] LABS: GLUCOSE 315 mg/dL (74-106)
[2019-01-04 22:12] LABS: APPEARANCE HAZY (CLEAR); BACTERIA MANY /hpf (NEGATIVE); BILIRUBIN NEGATIVE (NEGATIVE); COLOR YELLOW (YELLOW); EPITHELIAL CELLS NSEEN /hpf (0-5); GLUCOSE 100 mg/dL (NEGATIVE); KETONE SMALL mg/dL (NEGATIVE); NITRITE POSITIVE (NEGATIVE); PROTEIN NEGATIVE (NEGATIVE); RED CELLS - URINE NONE SEEN /hpf (0-5); UROBILINOGEN NORMAL (NORMAL)
[2019-01-04 22:37] LABS: INR 1.54 (0.85-1.17); PROTIME 17.9 SECONDS (11.6-15.0)
--- NOTE | 2019-01-04 23:55 | NUR ---
PT IN CT AT THIS TIME
--- NOTE | 2019-01-05 02:32 | NUR ---
I have reviewed this patient and I concur with the Shift Assessment completed by the Licensed Practical Nurse today this shift.
[2019-01-05] MEDS ORDERED: NEURONTIN600 MG PO (02:34)
[2019-01-05] MEDS ORDERED: CLARITIN 10 MG10 MG PO (02:35)
[2019-01-05] MEDS ORDERED: DICYCLOMINE PO (02:39)
[2019-01-05] MEDS ORDERED: XANAX0.5 MG PO (02:41)
--- NOTE | 2019-01-05 02:49 | NUR ---
RECEIVED TO ROOM VIA STRECHER FROM ER. SLEEPING BUT EASY TO AROUSE. SK TO RFA INTACT WITHOUT REDNESS OR EDEMA NOTED. RLE WITH MILD EDEMA TO FOOT. PPP. ORIENTED TO ROOM. CL IN REACH
[2019-01-05 02:56] VITALS: BP 162/66; Ht 170.2 cm; Wt 100.0 kg
[2019-01-05 05:04] VITALS: BP 162/66
--- NOTE | 2019-01-05 12:23 | NUR ---
PT RESTING IN BED. NO SIGNS OF DISTRESS. IV TO RIGHT WRIST PATENT NO REDNESS OR TENDERNESS. ON 2L NC. ON TELEMETRY. LEG SWOLLEN AND RED. DENIES ANY FURTHER NEED AT THIS TIME. CALL LIGHT IN REACH. BED LOW POSITION. FAMILY AT BEDSIDE.
[2019-01-05 12:56] VITALS: BP 144/64
--- NOTE | 2019-01-05 12:59 | MORECARE ---
CASE MANAGEMENT DISCHARGE SUMMARY PATIENT: JAMAR VICENTE UNIT: [id number] ADM DATE: 01/05/19 AGE: 63 : 55 SEX: F ROOM/BED: D.2228 AUTHOR: RICHELLE PAEZ PHYSICIAN: REFERRING PHYSICIAN: LILI ALMENDAREZ MD DATE OF SERVICE: 01/05/19 Discharge Plan Patient Name: JAMAR VICENTE Facility: [facility]:[place] : 1955 Planned Disposition: Home Anticipated Discharge Date: Discharge Date: Expected LOS: Initial Reviewer: [email or web address] Initial Review Date: 01/05/2019 Generated: 01/05/19 1:59 pm Patient Name: JAMAR VICENTE Page 42942 at 1259 All edits/amendments must be made on the electronic document DICTATION DATE: 01/05/19 1258 DAIRY PRODUCTS MAKER: ARETHA 01/05/19 1258 RPT#: [id number] DC DATE: STATUS: ADM IN [facility] [address] [place] [address] END OF REPORT
--- NOTE | 2019-01-05 13:07 | MORECARE ---
CASE MANAGEMENT DISCHARGE SUMMARY PATIENT: JAMAR VICENTE UNIT: [id number] ADM DATE: 01/05/19 AGE: 63 : 55 SEX: F ROOM/BED: D.2228 AUTHOR: JEANNINE,DOC PHYSICIAN: REFERRING PHYSICIAN: LILI ALMENDAREZ MD DATE OF SERVICE: 01/05/19 Discharge Plan Patient Name: JAMAR VICENTE Facility: [facility]:[place] : 1955 Planned Disposition: Home Anticipated Discharge Date: Discharge Date: Expected LOS: Initial Reviewer: [email or web address] Initial Review Date: 01/05/2019 Generated: 01/05/19 2:07 pm Comments DCP- Discharge Planning Updated by [email or web address]: Rosalina Anguiano on 01/05/19 12:[address] Patient Name: JAMAR VICENTE Admission Status: ER Accout number: [id number] Admission Date: 01-05-2019 : 1955 Admission Diagnosis: Attending: LILI ALMENDAREZ Current LOS: 1 Anticipated DC Date: Planned Disposition: Home Primary Insurance: MEDICARE A & B Discharge Planning Comments: CM met with patient to complete initial dc planning assessment. CM educated patient on the CM role and verbal consent given by patient to complete assessment. Patient lives at home with her . At discharge patient plans to return and feels this is a safe discharge. CM discussed availability of home health, rehab services, and medical equipment. Patient denied known discharge needs at this time. CM will continue to follow and will assist as needed with dc plans/needs. Award Clerk: Rosalina Anguiano DCPIA - Discharge Planning Initial Assessment Updated by [email or web address]: Rosalina Anguiano on 01/05/19 1:03 pm * Is the patient Alert and Oriented? Yes * How many steps to enter\exit or inside your home? 5/0 * PCP Page Long APN * Pharm[facility] [address] * Preadmission Environment Home with Family * ADLs Independent * Equipment Cane * List name and contact numbers for known caregivers / representatives who currently or will assist patient after discharge: Layla Aldridge - DTR - H [phone] W [phone] * Verbal permission to speak to the caregivers and representatives has been obtained from the patient. Yes * Community resources currently utilized None * Additional services required to return to the preadmission environment? No * Can the patient safely return to the preadmission environment? Yes * Has this patient been hospitalized within the prior 30 days at any hospital? No Last DP export: 01/05/19 11:59 a Patient Name: JAMAR VICENTE Page 23818 at 1307 All edits/amendments must be made on the electronic document DICTATION DATE: 01/05/19 1307 COCOA BEAN ROASTER HELPER: ARETHA 01/05/19 1307 RPT#: [id number] DC DATE: STATUS: ADM IN [facility] [address] [place] [address] END OF REPORT
[2019-01-05 20:00] VITALS: BP 157/66
--- NOTE | 2019-01-05 20:00 | NUR ---
A&O X 4, DAUGHTER AT BEDSIDE. FACE APPEARS FLUSHED AND DAUGHTER REPORTS FACE APPEARS SLIGHTLY SWOLLEN. VITALS ARE WNL. PT DENIES ANY DISTRESS. REPORTS MILD PAIN (2-3/10) TO RIGHT LEG. LEG APPEARS SWOLLEN AND RED. PT REQUESTS NICOTINE PATCH, REPORTS SHE IS A PACK/DAY SMOKER. DR HALLMAN. WILL CONTINUE TO MONITOR. .
[2019-01-06] VITALS: BP 145/58
--- NOTE | 2019-01-06 01:50 | NUR ---
I have reviewed this patient and I concur with the Shift Assessment completed by the Licensed Practical Nurse today this shift.
[2019-01-06 04:00] VITALS: BP 149/65
[2019-01-06 06:29] LABS: CALC OSMOLALITY 285 mosm/kg (275-300); CALCIUM 8.7 mg/dL (8.5-10.1); CHLORIDE - SERUM 105 mmol/L (98-107); CREATININE - SERUM 0.5 mg/dL (0.6-1.3); GLUCOSE 170 mg/dL (74-106); POTASSIUM - SERUM 3.3 mmol/L (3.5-5.1); SODIUM 142 mmol/L (136-145); UREA NITROGEN 10 mg/dL (7-18); eGFR NON AFRICAN AMERICAN > 90 mL/min (90-120)
[2019-01-06 06:46] LABS: INR 1.69 (0.85-1.17); PROTIME 19.3 SECONDS (11.6-15.0)
[2019-01-06 09:47] VITALS: BP 158/71
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
--- NOTE | 2019-01-06 10:18 | NUR ---
REC'D PT LYING IN BED RESP EVEN AND UNLABORED LUNG SOUNDS CLEAR O2@2L/MIN VIA CONTINUOUSLY. HEART RATE REGULAR NO EDEMA NOTED TO BLE. SKIN PINK WARM AND DRY WITH GOOD TURGOR. PPPX4 PT DENIES NEEDS AT THIS TIME. IV TO RIGHT WRIST SL PATENT AND INTACT AT THIS TIME. BED AT LOWEST POSTION WITH BRAKES ON. SRX2 CALL LIGHT WITHIN REACH WILL CONTINUE TO MONITOR
[2019-01-06 13:39] VITALS: BP 101/53
[2019-01-06 17:00] VITALS: BP 142/57
--- NOTE | 2019-01-06 19:00 | NUR ---
BEDSIDE REPORT RECEIVED AND CARE OF PT ASSUMED. PT AMBULATING IN THE HALLWAY AT THIS TIME WITH DAUGHTER. IV TO RIGHT WRIST SALINE LOCKED.
--- NOTE | 2019-01-06 20:24 | NUR ---
HS MEDICATIONS GIVEN. FSBS THIS CHECK WAS 214 REQUIRING COVERAGE WITH 8 UNITS OF INSULIN PER SLIDING SCALE.
[2019-01-06 20:45] VITALS: BP 154/74
[2019-01-07 00:46] VITALS: BP 146/54
--- NOTE | 2019-01-07 05:00 | NUR ---
PT'S WAS BROUGHT TO THE ER UNRESPONSIVE. PT AND DAUGHTER WENT TO ER TO BE WITH HIM.
[2019-01-07 05:10] VITALS: BP 141/50
--- NOTE | 2019-01-07 06:08 | NUR ---
PT STILL IN ER WITH SPOUSE. TOLD DAUGHTER TO LET US KNOW WHEN PT RETURNS SO WE CAN GET AM LABS DRAWN.
[2019-01-07 08:47] LABS: INR 2.19 (0.85-1.17); PROTIME 23.7 SECONDS (11.6-15.0)
[2019-01-07 08:50] LABS: CALC OSMOLALITY 281 mosm/kg (275-300); CALCIUM 8.5 mg/dL (8.5-10.1); CARBON DIOXIDE 31.3 mmol/L (21.0-32.0); CHLORIDE - SERUM 103 mmol/L (98-107); CREATININE - SERUM 0.5 mg/dL (0.6-1.3); GLUCOSE 160 mg/dL (74-106); POTASSIUM - SERUM 3.5 mmol/L (3.5-5.1); SODIUM 141 mmol/L (136-145); UREA NITROGEN 8 mg/dL (7-18); eGFR NON AFRICAN AMERICAN > 90 mL/min (90-120)
[2019-01-07 09:36] VITALS: BP 158/67
--- NOTE | 2019-01-07 09:41 | NUR ---
ALERT AND ORIENTED X4. TELEMETRY INTACT. TRACE EDEMA TO BLE. PEDAL PULSES NOTED WITH SKIN WARM AND DRY AND INTACT. S/L TO RT. WRIST INTACT. WITH NO S/S OF INFECTION/INFILTRATION. ENCOURAGED TO USE CALL LIGHT FOR ASIST.
[2019-01-07] MEDS ORDERED: COUMADIN5 MG PO (09:57)
[2019-01-07] MEDS ORDERED: COUMADIN7.5 MG PO (09:58)
[2019-01-07] MEDS ORDERED: CIPRO250 MG PO (09:59)
[2019-01-07 18:25] VITALS: BP 178/65
--- NOTE | 2019-01-07 19:00 | NUR ---
BEDSIDE REPORT RECEIVED AND CARE OF PT ASSUMED. PT SITTING UP IN CHAIR AT THIS TIME VISITING WITH FAMILY MEMBERS. IV TO RIGHT WRIST SALINE LOCKED. TELEMETRY IN PLACE PER ORDER AND READING 72 SR. WILL MONITOR FOR NEEDS.
--- NOTE | 2019-01-07 20:05 | NUR ---
HS MEDICATIONS GIVEN. FSBS 196 THIS CHECK REQUIRING COVERAGE WITH 4 UNITS OF REGULAR INSULIN PER SLIDING SCALE. HS SNACK GIVEN: MARINA CRACKERS AND PEANUT BUTTER. WILL CONTINUE TO MONTIOR FOR NEEDS. DAUGHTER IS AT BEDSIDE.
[2019-01-07 20:56] VITALS: BP 157/62
[2019-01-08 01:48] VITALS: BP 107/56
[2019-01-08 05:24] VITALS: BP 126/69
[2019-01-08 05:40] LABS: BASOPHILS 0.5 % (0-2); EOSINOPHILS 3.3 % (0-7); HEMATOCRIT 41.5 % (36.0-48.0); HEMOGLOBIN 13.1 g/dL (12-16); IMMATURE GRANULOCYTES 0.2 % (0-5); LYMPHOCYTES 30.8 % (15-50); MCH 30.6 pg (26.0-34.0); MCHC 31.6 g/dL (31.0-37.0); MEAN PLATELET VOLUME 13.1 fL (7.4-10.4); MONOCYTES 7.2 % (2-11); PLATELET COUNT 231 10x3/uL (130-400); RBC 4.28 10x6/uL (4.00-5.40); RDW 14.5 % (11.5-14.5); WBC 8.6 10x3/uL (4.8-10.8)
[2019-01-08 05:52] LABS: INR 2.03 (0.85-1.17); PROTIME 22.3 SECONDS (11.6-15.0)
[2019-01-08 05:55] LABS: CALC OSMOLALITY 289 mosm/kg (275-300); CALCIUM 8.4 mg/dL (8.5-10.1); CARBON DIOXIDE 26.8 mmol/L (21.0-32.0); CHLORIDE - SERUM 108 mmol/L (98-107); CREATININE - SERUM 0.5 mg/dL (0.6-1.3); GLUCOSE 171 mg/dL (74-106); POTASSIUM - SERUM 3.6 mmol/L (3.5-5.1); SODIUM 143 mmol/L (136-145); eGFR NON AFRICAN AMERICAN > 90 mL/min (90-120)
[2019-01-08 05:56] LABS: UREA NITROGEN 15 mg/dL (7-18)
[2019-01-08 07:59] VITALS: BP 167/52
--- NOTE | 2019-01-08 09:26 | NUR ---
PT IS PRETTY SLEEPY TODAY, DAUGHTER STATED UP UNTIL 1 VISITING WITH SPOUSE, NO S/S OF DISTRESS, CONTINUE WITH PLAN OF CARE
[2019-01-08] MEDS ORDERED: COUMADIN7.5 MG PO (14:31)
[2019-01-08] MEDS ORDERED: LEVOFLOXACIN500 MG PO (14:32)
--- NOTE | 2019-01-08 14:34 | EC ---
PATIENT:JAMAR VICENTE DATE OF SERVICE: 01/05/19 SEX: F MEDICAL RECORD: [id number] DATE OF : 55 LOCATION:D.MS [facility] AGE OF PATIENT: 63 ADMISSION DATE: 01/05/19 REFERRING PHYSICIAN: INTERPRETING PHYSICIAN: RAMANA MALHOTRA MD ECHOCARDIOGRAM REPORT ECHO CHARGES 4 ECHO COMPLETE Date: 01/07/19 CLINICAL DIAGNOSIS: CHRONIC AFIB, SLURRED SPEECH ECHOCARDIOGRAPHIC MEASUREMENTS (adult normal given) AC root (d.<3.7cm) 3.1 cm LV Septum d (<1.2 cm> 1.5 cm Valve Excursion 2.1 cm LV Septum (systole) 1.6 cm Left Atria (s.<4.0cm> 4.6 cm LVPW d(<1.2cm) 1.4 cm RV (d.<2.3cm) 2.9 cm LVPW (sytole) 1.5 cm LV diastole(<5.6CM) 4.4 cm MV E-F(>70mm/sec) cm LV systole 3.9 cm LVOT Diameter 1.9 cm MV exc.(>10mm) cm Est.ejection fraction (50-75%) % DOPPLER: LVIT cm/sec A 89 cm/sec E 72 cm/sec LA cm/sec RVSP 17.9 mmHg LVOT 120 cm/sec AOP1/2T m/s Asc. Ao 143 cm/sec RVOT 79 cm/sec RA cm/sec PA 110 cm/sec AV Gradient Peak 8.2 mmHg AV Mean 6.6 mmHg AV Area 2.7 cm MV Gradient Peak 4.6 mmHg MV Mean 2.4 mmHg MV Area cm COMMENTS: Breeder Service Technician: Roger BEYER Cold Reduction Roller: 1 Dr. Malhotra TAPE# PACS Pericardial Effusion N DATE OF SERVICE: PROCEDURE: Echocardiogram. FINDINGS: 1. Left ventricular chamber size is within normal limits. Left ventricular systolic function is normal at 60%. 2. Left atrium is enlarged at 4.6 cm. Right atrium and right ventricular chamber sizes are within normal limits. 3. Valvular structures have normal structure and motion. ECHOCARDIOGRAM REPORT [id number] JAMAR VICENTE 4. Doppler interrogation reveals trace mitral regurgitation, no other valvular insufficiency or stenosis. Pulmonary systolic pressure is normal estimated at 18 mmHg. 5. No evidence of pericardial effusion or left ventricular thrombus. TRANSINT:[id number] Voice Confirmation ID: [id number] DOCUMENT ID: [id number] RAMANA MALHOTRA MD at 1434 CC: [id number] DICTATION DATE: 01/08/19 1020 TICKET SCHEDULER: 01/08/19 1136 ADM IN [facility] [address] [place] [address]
--- NOTE | 2019-01-08 14:50 | MORECARE ---
CASE MANAGEMENT DISCHARGE SUMMARY PATIENT: JAMAR VICENTE UNIT: [id number] ADM DATE: 01/05/19 AGE: 63 : 55 SEX: F ROOM/BED: D.2228 AUTHOR: RICHELLE PAEZ PHYSICIAN: REFERRING PHYSICIAN: ELENA CLIFFORD MD DATE OF SERVICE: 01/08/19 Discharge Plan Patient Name: JAMAR VICENTE Facility: [facility]:[place] : 1955 Planned Disposition: Home Anticipated Discharge Date: Discharge Date: Expected LOS: Initial Reviewer: [email or web address] Initial Review Date: 01/05/2019 Generated: 01/08/19 3:50 pm Comments DCP- Discharge Planning Updated by [email or web address]: Rosalina Anguiano on 01/08/19 1:[address] Patient Name: JAMAR VICENTE Encounter No: [id number] : 1955 Primary Insurance: MEDICARE A & B Anticipated DC Date: Planned Disposition: Home External Planned Provider: : DCP follow-up note: Patient and family in agreement with discharge plan. No changes to plan. Family member at bedside. Case management will follow and assist as needed. Rosalina Anguiano DCP- Discharge Planning Updated by [email or web address]: Rosalina Anguiano on 01/05/19 12:[address] Patient Name: JAMAR VICENTE Admission Status: ER Accout number: [id number] Admission Date: 01-05-2019 : 1955 Admission Diagnosis: Attending: LILI ALMENDAREZ Current LOS: 1 Anticipated DC Date: Planned Disposition: Home Primary Insurance: MEDICARE A & B Discharge Planning Comments: CM met with patient to complete initial dc planning assessment. CM educated patient on the CM role and verbal consent given by patient to complete assessment. Patient lives at home with her . At discharge patient plans to return and feels this is a safe discharge. CM discussed availability of home health, rehab services, and medical equipment. Patient denied known discharge needs at this time. CM will continue to follow and will assist as needed with dc plans/needs. Certified Dialysis Technician: Rosalina Anguiano DCPIA - Discharge Planning Initial Assessment Updated by [email or web address]: Rosalina Anguiano on 01/05/19 1:03 pm * Is the patient Alert and Oriented? Yes * How many steps to enter\exit or inside your home? 5/0 * PCP Page Long APN * [facility] [address] * Preadmission Environment Home with Family * ADLs Independent * Equipment Cane * List name and contact numbers for known caregivers / representatives who currently or will assist patient after discharge: Layla Aldridge - DTR - H [phone] W [phone] * Verbal permission to speak to the caregivers and representatives has been obtained from the patient. Yes * Community resources currently utilized None * Additional services required to return to the preadmission environment? No * Can the patient safely return to the preadmission environment? Yes * Has this patient been hospitalized within the prior 30 days at any hospital? No Coverage Notice Reviewer: [email or web address] Josiah Anguiano Notice Issued Date-Time: 01/08/2019 14:45 Notice Type: IM Discharge Notice Notice Delivered To: Patient Relationship to Patient: Self Technician Preventative Medicine Name: Delivery Method: HAND - Hand Delivered Angie Days: Prior Verbal Notification: Recipient Understood Notice: Yes Recipient Signature: Yes Med Rec Note Co-signed by Attending: Coverage Notice Comment: IMM explained, signed, given, copy placed in MR Last DP export: 01/05/19 12:07 p Patient Name: JAMAR VICENTE Page [id number] at 1450 All edits/amendments must be made on the electronic document DICTATION DATE: 01/08/19 145 FLIGHT SURGEON: ARETHA 01/08/19 1450 RPT#: [id number] DC DATE: STATUS: ADM IN [facility] [address] [place] [address] END OF REPORT
[2019-01-08 15:55] VITALS: BP 131/80
--- NOTE | 2019-01-09 16:46 | MORECARE ---
CASE MANAGEMENT DISCHARGE SUMMARY PATIENT: JAMAR VICENTE UNIT: [id number] ADM DATE: 01/05/19 AGE: 63 : 55 SEX: F ROOM/BED: D.2228 AUTHOR: RICHELLE PAEZ PHYSICIAN: REFERRING PHYSICIAN: ELENA CLIFFORD MD DATE OF SERVICE: 01/09/19 Discharge Plan Patient Name: JAMAR VICENTE Facility: [facility]:[place] : 1955 Planned Disposition: Home Anticipated Discharge Date: Discharge Date: 01/08/2019 Expected LOS: Initial Reviewer: [email or web address] Initial Review Date: 01/05/2019 Generated: 01/09/19 5:45 pm Comments DCP- Discharge Planning Updated by [email or web address]: Rosalina Anguiano on 01/08/19 1:[address] Patient Name: JAMAR VICENTE Encounter No: [id number] : 1955 Primary Insurance: MEDICARE A & B Anticipated DC Date: Planned Disposition: Home External Planned Provider: : DCP follow-up note: Patient and family in agreement with discharge plan. No changes to plan. Family member at bedside. Case management will follow and assist as needed. Rosalina Anguiano DCP- Discharge Planning Updated by [email or web address]: Rosalina Anguiano on 01/05/19 12:[address] Patient Name: JAMAR VICENTE Admission Status: ER Accout number: [id number] Admission Date: 01-05-2019 : 1955 Admission Diagnosis: Attending: LILI ALMENDAREZ Current LOS: 1 Anticipated DC Date: Planned Disposition: Home Primary Insurance: MEDICARE A & B Discharge Planning Comments: CM met with patient to complete initial dc planning assessment. CM educated patient on the CM role and verbal consent given by patient to complete assessment. Patient lives at home with her . At discharge patient plans to return and feels this is a safe discharge. CM discussed availability of home health, rehab services, and medical equipment. Patient denied known discharge needs at this time. CM will continue to follow and will assist as needed with dc plans/needs. Business System Consultant: Rosalina Anguiano DCPIA - Discharge Planning Initial Assessment Updated by [email or web address]: Rosalina Anguiano on 01/05/19 1:03 pm * Is the patient Alert and Oriented? Yes * How many steps to enter\exit or inside your home? 5/0 * PCP Page Long APN * [facility] [address] * Preadmission Environment Home with Family * ADLs Independent * Equipment Cane * List name and contact numbers for known caregivers / representatives who currently or will assist patient after discharge: Layla Aldridge - DTR - H [phone] W [phone] * Verbal permission to speak to the caregivers and representatives has been obtained from the patient. Yes * Community resources currently utilized None * Additional services required to return to the preadmission environment? No * Can the patient safely return to the preadmission environment? Yes * Has this patient been hospitalized within the prior 30 days at any hospital? No Coverage Notice Reviewer: [email or web address] oJsiah Anguiano Notice Issued Date-Time: 01/08/2019 14:45 Notice Type: IM Discharge Notice Notice Delivered To: Patient Relationship to Patient: Self Multimedia Developer Name: Delivery Method: HAND - Hand Delivered Angie Days: Prior Verbal Notification: Recipient Understood Notice: Yes Recipient Signature: Yes Med Rec Note Co-signed by Attending: Coverage Notice Comment: IMM explained, signed, given, copy placed in MR Last DP export: 01/08/19 1:50 p Patient Name: JAMAR VICENTE Page [id number] at 1646 All edits/amendments must be made on the electronic document DICTATION DATE: 01/09/191644 WORKFORCE PLANNER: ARETHA 01/09/191644 RPT#: [id number] DC DATE:01/08/19 STATUS: DIS IN [facility] [address] [place] [address] END OF REPORT
== END 2019-01-08 16:27 | disposition home or self-care (01) | DRG 690 ==
LOC: D.ER 21:02 → D.MS 01-05 01:41
PROVIDERS: Family Medicine; ADMIT Family Medicine; ATTEND Family Medicine
DX: N39.0 Urinary tract infection, site not specified (principal); I48.92 Unspecified atrial flutter; E11.65 Type 2 diabetes mellitus with hyperglycemia; T38.0X5A Adverse effect of glucocorticoids and synthetic analogues, initial encounter; I48.0 Paroxysmal atrial fibrillation; E78.5 Hyperlipidemia, unspecified; E87.6 Hypokalemia; G43.109 Migraine with aura, not intractable, without status migrainosus; I65.23 Occlusion and stenosis of bilateral carotid arteries; B96.4 Proteus (mirabilis) (morganii) as the cause of diseases classified elsewhere; Z86.718 Personal history of other venous thrombosis and embolism; Z79.01 Long term (current) use of anticoagulants; M51.9 Unspecified thoracic, thoracolumbar and lumbosacral intervertebral disc disorder; E11.40 Type 2 diabetes mellitus with diabetic neuropathy, unspecified; J44.9 Chronic obstructive pulmonary disease, unspecified; K59.09 Other constipation; E66.9 Obesity, unspecified; Z68.34 Body mass index [BMI] 34.0-34.9, adult

== ENCOUNTER → 2019-03-21 13:56 | Outpatient (CLI) | payer MEDICARE, BC ==
[2019-01-05 02:56] VITALS: BMI 34.5
[~2019-03-21 13:56] MED LIST changes: +CIPRO250 MG PO; +CLARITIN 10 MG10 MG PO; +COUMADIN5 MG PO; +COUMADIN7.5 MG PO; +DICYCLOMINE PO; +EFFEXOR75 MG PO; +LEVOFLOXACIN500 MG PO; +NEURONTIN600 MG PO; +XANAX0.5 MG PO
== END | disposition home or self-care (01) ==
LOC: D.RAD 13:56
PROVIDERS: ATTEND Pain Medicine Interventional Pain Medicine
DX: M47.897 Other spondylosis, lumbosacral region (principal); M54.9 Dorsalgia, unspecified; M51.36 Other intervertebral disc degeneration, lumbar region

== ENCOUNTER → 2019-03-29 12:33 | Outpatient (CLI) | payer MEDICARE, BC ==
[2019-01-05 02:56] VITALS: BMI 34.5
== END | disposition home or self-care (01) ==
LOC: D.MRI 03-26 13:00
PROVIDERS: ATTEND Pain Medicine Interventional Pain Medicine
DX: M54.6 Pain in thoracic spine (principal); M47.897 Other spondylosis, lumbosacral region; M51.36 Other intervertebral disc degeneration, lumbar region

== ENCOUNTER 2019-08-27 08:30 | Day surgery (SDC) | payer MEDICARE, BC ==
[2019-08-24 10:03] LABS: HEMATOCRIT 44.4 % (36.0-48.0); MCH 31.3 pg (26.0-34.0); MCHC 31.5 g/dL (31.0-37.0); MCV 99.3 fL (80.0-100.0); MEAN PLATELET VOLUME 12.4 fL (7.4-10.4); RBC 4.47 10x6/uL (4.00-5.40); RDW 14.4 % (11.5-14.5); WBC 11.4 10x3/uL (4.8-10.8)
[2019-08-24 10:12] LABS: CALC OSMOLALITY 284 mosm/kg (275-300); CALCIUM 8.6 mg/dL (8.5-10.1); CARBON DIOXIDE 28.1 mmol/L (21.0-32.0); CHLORIDE - SERUM 102 mmol/L (98-107); CREATININE - SERUM 0.8 mg/dL (0.6-1.3); POTASSIUM - SERUM 3.9 mmol/L (3.5-5.1); SODIUM 138 mmol/L (136-145); UREA NITROGEN 15 mg/dL (7-18); eGFR NON AFRICAN AMERICAN 76 mL/min (90-120)
[2019-08-24 10:13] LABS: APTT 33.2 SECONDS (22.8-39.4); GLUCOSE 248 mg/dL (74-106); INR 1.17 (0.85-1.17); PROTIME 14.8 SECONDS (11.6-15.0)
[~2019-08-27] VITALS: Ht 170.2 cm; Wt 108.0 kg
[2019-08-27 08:47] VITALS: BP 143/63; Ht 170.2 cm; Wt 108.0 kg
--- NOTE | 2019-08-27 14:02 | NUR ---
DC INSTRUCTIONS GIVEN TO PT. STATES UNERSTANDING. DC'D IV CATH FULLY INTACT. PT LEFT UNIT VIA WC AT 1355
--- NOTE | 2019-08-29 08:08 | OP ---
PATIENT NAME: JAMAR VICENTE MEDICAL RECORD: [id number] :55 LOCATION:D.OPS ADMISSION DATE: SURGEON: STAN KEARNS MD DATE OF OPERATION: 08/27/2019 PREOPERATIVE DIAGNOSIS: Trigger finger of the right long and ring finger. POSTOPERATIVE DIAGNOSIS: Trigger finger of the right long and ring finger. PROCEDURE: A1 jeremias trigger finger release. SURGEON: Stan Kearns MD ANESTHESIA: General. INTRAOPERATIVE COMPLICATIONS: None. SUMMARY OF PATHOLOGIC FINDINGS: While the patient did have some excoriated changes of the flexor mass, there was no inherent tearing in the single incision. Both the A1 pulleys of the long finger and the ring finger were released. OPERATIVE SUMMARY IN DETAIL: After obtaining the appropriate preoperative orthopedic surgery consent as well as anesthetic consultation, evaluation and clearance, the patient was brought to the operating room and placed on the operating table in supine position. After general laryngeal mask airway was administered, tourniquet was placed on the proximal aspect of the patient's right upper extremity. Right extremity was then prepped and draped in usual fashion. Arms and exsanguinated, tourniquet inflated to 250 mmHg. An incision was made in the mid palmar crease, taken down over the A1 jeremias, which was visualized in its entirety. While protecting the digital nerves of both the long finger, the A1 jeremias was then excised in its entirety. This was then followed by excision of the A1 jeremias of the ring finger in its entirety. Both tendons were inspected. The wound was irrigated and closed with 4-0 Prolene followed by infiltration of 0.25% Marcaine plain. Sterile dressings were applied. The patient was awakened, taken to recovery room in stable condition. All final needle and sponge counts were correct. TRANSINT:[id number] Voice Confirmation ID: [id number] DOCUMENT ID: [id number] STAN KEARNS MD at 0808 CC: [id number] DICTATION DATE: 08/27/192006 [employer] ATTENDANT: 08/28/19 0056 [facility] 08/27/19 [place] [address]
== END 2019-08-27 13:55 | disposition home or self-care (01) ==
LOC: D.OPS 08:30
PROVIDERS: Anesthesiology; ATTEND Orthopaedic Surgery
DX: M65.341 Trigger finger, right ring finger (principal); M65.331 Trigger finger, right middle finger; J44.9 Chronic obstructive pulmonary disease, unspecified; E11.9 Type 2 diabetes mellitus without complications; Z79.84 Long term (current) use of oral hypoglycemic drugs; Z72.0 Tobacco use

== ENCOUNTER → 2019-11-13 14:04 | Outpatient (CLI) | payer MEDICARE, BC ==
[2019-08-27 08:47] VITALS: BMI 37.3
== END | disposition home or self-care (01) ==
LOC: D.MRI 14:04
PROVIDERS: ATTEND Orthopaedic Surgery
DX: M79.642 Pain in left hand (principal)

== ENCOUNTER → 2019-12-07 09:58 | Outpatient (CLI) | payer MEDICARE, BC ==
[2019-08-27 08:47] VITALS: BMI 37.3
== END | disposition home or self-care (01) ==
LOC: D.CT 09:58
PROVIDERS: ATTEND Clinical Nurse Specialist Family Health
DX: M25.562 Pain in left knee (principal)